=== PATIENT | female | born 1960 | race Two or more races ===

== ENCOUNTER 2022-09-30 18:41 | Emergency (ER) | payer MEDICAID ==
[~2022-09-30] VITALS: Ht 165.1 cm; Wt 63.5 kg
--- NOTE | 2022-09-30 20:15 | NUR ---
BIBSELF FROM HOME WITH CC OF PAIN ON RIGHT BREAST, + BILATERAL BREAST IMPLANT 3 MONTHS AGO. + DISCHARGES (MINIMAL). PT IS CZECH SPEAKING. PAIN SCALE OF 6/10. PATIENT IS AAOX4, ABLE TO MAKE NEEDS KNOWN. PLACED COMFORTABLY IN BED. VITALS CHECKED.
--- NOTE | 2022-09-30 20:22 | NUR ---
SEEN BY DR BOOTH/[employer] TRAINER KESTENIAN AT BEDSIDE
[2022-09-30] MEDS ORDERED: KETOROLAC TROMETHAMINE INJ 30 MG/ML VIAL IV ONE (20:30)
[2022-09-30] MEDS ORDERED: CEFTRIAXONE 1GM BAG (ER ONLY) 1 GM/50 ML PIGGYBACK IV ONE (20:30)
--- NOTE | 2022-09-30 20:40 | NUR ---
18GA TO LEFT AC ESTABLISHED; BLOOD WORK COLLECTED AND SENT TO LAB
[2022-09-30 20:49] LABS: BASOPHILS % (AUTO) 0.7 % (0.0-2.0); EOSINOPHILS % (AUTO) 0.5 % (0.0-6.0); HEMATOCRIT 42 % (33-45); HEMOGLOBIN 13.7 g/dL (11.5-14.8); LYMPHOCYTES # (AUTO) 3.5 K/uL (0.8-4.8); LYMPHOCYTES % (AUTO) 46.7 % (20.0-44.0); MEAN CORPUSCULAR HGB CONC 32 g/dl (31.0-36.0); MEAN CORPUSCULAR VOLUME 93 fL (82-100); MONOCYTES # (AUTO) 0.4 K/uL (0.1-1.30); MONOCYTES % (AUTO) 4.9 % (2.0-12.0); NEUTROPHILS # (AUTO) 3.6 K/uL (1.8-8.9); NEUTROPHILS % (AUTO) 47.2 % (43.0-81.0); PLATELET COUNT (AUTO) 253 K/uL (150-450); RED BLOOD CELL COUNT(AUTO) 4.56 MIL/uL (4.0-5.2); WHITE BLOOD COUNT (AUTO) 7.6 K/uL (4.3-11.0)
[2022-09-30] MEDS ORDERED: KETOROLAC TROMETHAMINE INJ 30 MG/ML VIAL ONE (20:59)
[2022-09-30] MEDS ORDERED: CEFTRIAXONE 1GM BAG (ER ONLY) 50 ML IV ONE (20:59)
[2022-09-30 21:36] LABS: CALCIUM, SERUM 10.2 mg/dL (8.5-10.1); CREATININE 0.7 mg/dL (0.6-1.3); POTASSIUM 3.7 mmol/L (3.5-5.1)
[2022-09-30 21:43] LABS: ALBUMIN 4.4 g/dL (3.4-5.0); BILIRUBIN,DIRECT 0.3 mg/dL (0.0-0.2); BILIRUBIN,TOTAL 1.5 mg/dL (0.2-1.0); TOTAL PROTEIN, SERUM 8.2 g/dL (6.4-8.2)
[2022-09-30] MEDS ORDERED: CEPH500T PO (22:12)
[2022-09-30] MEDS ORDERED: IBUP-1955 PO (22:12)
--- NOTE | 2022-09-30 22:15 | NUR ---
Patient discharged to home in stable condition. Written and verbal after care instructions given. Patient verbalizes understanding of instruction. IV removed. Catheter intact and site benign. Pressure and 4x4 applied to site. No bleeding noted.
[2022-09-30 22:17] VITALS: BP 139/66
== END 2022-09-30 22:30 | disposition home or self-care (01) ==
LOC: ER 18:42
DX: N61.0 Mastitis without abscess (principal); Z98.82 Breast implant status
CPT/HCPCS: 99285; 96374; 96375; 76641; 85025; 80048; 87040 ×2; 80076; 36415; J1885; J0696